=== PATIENT | female | born 1990 | race Asian ===

== ENCOUNTER 2018-02-09 18:31 | Outpatient (CLI) | payer BC ==
[~2018-02-09] VITALS: Ht 162.6 cm; Wt 65.9 kg
[~2018-02-09 18:31] MED LIST: IBU600 MG PO; PRENATAL PO
[2018-02-09 19:15] VITALS: BP 112/73; PULSE 91; TEMP 98.2
[2018-02-13] MEDS ORDERED: IBU600 MG PO (08:32)
== END 2018-02-09 20:15 | disposition home or self-care (01) ==
LOC: LDRO 18:31
DX: O62.9 Abnormality of forces of labor, unspecified (principal); Z3A.39 39 weeks gestation of pregnancy